=== PATIENT | male | born 1935 | race Caucasian/White ===

== ENCOUNTER 2019-01-28 13:42 | Emergency (ER) | payer MEDICARE, BC ==
[2019-01-28 15:14] LABS: #Eosinphils 0.1 thou/uL (0.0-0.7); #Lymphocytes 1.6 thou/uL (1.20-3.40); #Monocytes 0.4 thou/uL (0.11-0.59); #Neutrophils 4.2 thou/uL (1.40-6.50); %Basophils 0.6 % (0.0-1.0); %Lymphocytes 25.1 % (21.0-51.0); %Monocytes 6.4 % (0.0-10.0); %Neutrophils 66.9 % (42.0-75.0); Hemoglobin 14.3 g/dL (14.0-18.0); Mean Corpuscular HGB CONC 34.5 g/dL (32.0-36.0); Mean Corpuscular Hemoglobin 31.8 pg (27.0-31.0); Mean Corpuscular Volume 92.4 fL (78.0-98.0); Mean Platelet Volume 8.2 fL (7.4-10.4); Platelet Count 166 thou/uL (130-400); RBC Distribution Width 11.9 % (11.5-14.5); Red Blood Cell (RBC) Count 4.48 mill/uL (4.70-6.10); White Blood Cell (WBC) Count 6.3 thou/uL (4.8-10.8)
--- NOTE | 2019-01-28 15:33 | RAD ---
PORTABLE CHEST ONE VIEW: 01/28/2019 3:13 P.M. HISTORY: Hypertension. Dizziness. COMPARISON: 10/11/2017 FINDINGS: The heart size is normal. The left upper lobe lung nodule is stable. The lungs are well expanded wi thout focal areas of consolidation, pneumothoraces, or pleural effusions. IMPRESSION: 1. No evidence of acute process. 2. Stable left upper lobe lung nodule. POS: [facility]
[2019-01-28 15:34] LABS: ALT (SGPT) 26 U/L (8-55); AST (SGOT) 24 U/L (5-34); Albumin 4.2 g/dL (3.4-4.8); Alkaline Phosphatase 72 U/L (40-150); Anion Gap 14 mmol/L (10-20); BUN (Urea Nitrogen) 19 mg/dL (8.4-25.7); Bilirubin, Total 0.9 mg/dL (0.2-1.2); Calc. Creatinine Clearance 0 mL/min (70-130); Calcium 9.2 mg/dL (7.8-10.44); Carbon Dioxide 25 mmol/L (23-31); Chloride 104 mmol/L (98-107); Estimated GFR-MDRD 41; Globulin 2.2 g/dL (2.4-3.5); Glucose 96 mg/dL (83-110); Potassium 4.2 mmol/L (3.5-5.1); Protein, Total 6.4 g/dL (5.8-8.1); Sodium 139 mmol/L (136-145)
--- NOTE | 2019-02-01 11:28 | EKG ---
Test Reason : Blood Pressure : / mmHG Vent. Rate : 067 BPM Atrial Rate : 067 BPM P-R Int : 158 ms QRS Dur : 076 ms QT Int : 400 ms P-R-T Axes : 002 005 055 degrees QTc Int : 422 ms Sinus rhythm with marked sinus arrhythmia Nonspecific ST abnormality Abnormal ECG Confirmed by RODY SCHAFER DO ([id number]), news copy editor TE MAC ([id number]) on 02/01/2019 11:28:00 AM Referred By: Confirmed By:RODY SCHAFER DO
== END 2019-01-28 17:05 | disposition home or self-care (01) ==
LOC: ERS 13:42
DX: R00.1 Bradycardia, unspecified (principal); E78.5 Hyperlipidemia, unspecified; J45.909 Unspecified asthma, uncomplicated; I10 Essential (primary) hypertension; Z87.891 Personal history of nicotine dependence; Z79.82 Long term (current) use of aspirin; Z79.899 Other long term (current) drug therapy
CPT/HCPCS: 36415; 71045; 80053; 83880; 84484; 85025; 93005; 94760

== ENCOUNTER 2020-02-10 07:10 | Day surgery (SDC) | payer MEDICARE, BC ==
[2020-02-07 19:52] LABS: SARS-CoV-2 MS2 Positive; SARS-CoV-2 N Gene Negative; SARS-CoV-2 S Gene Negative; SARS-CoV-2 orf1ab Negative
[2020-02-10] MEDS ORDERED: Cyclopentolate 1% Opth Drop 2 ML BOT ONE (07:32)
[2020-02-10] MEDS ORDERED: Phenylephrine 2.5% Ophth Soln 5 ML BOT ONE (07:32)
[2020-02-10] MEDS ORDERED: EPINEPHrine 0.3 MG in Ophthalmic Irrigation Solution 500 ML IRR SCH (07:34)
[2020-02-10] MEDS ORDERED: Fentanyl 100 MCG/2 ML VIAL ONE (09:03)
[2020-02-10] MEDS ORDERED: Midazolam HCl 2 mg/2 ml Vial ONE (09:03)
[2020-02-10] MEDS ORDERED: Triamcinolone 40 MG/ML VIAL ONE (09:40)
[2020-02-10] MEDS ORDERED: Tobramycin/Dexamethasone Ophth Oint 3.5 GM TUBE ONE (09:40)
[2020-02-10] MEDS ORDERED: Lidocaine 1% PF 5 ML VIAL ONE (09:40)
[2020-02-10] MEDS ORDERED: CEFAZOLIN 1 GM VIAL ONE (09:40)
[2020-02-10] MEDS ORDERED: Lidocaine 4% PF 5 ML AMP ONE (09:40)
[2020-02-10] MEDS ORDERED: Bupivacaine PF 0.75% SDV 10 ML ONE (09:40)
[2020-02-10] MEDS ORDERED: Indocyanine Green 25 MG/10 ML VIAL ONE (09:40)
[2020-02-10] MEDS ORDERED: PROPOFOL 200 MG/20 ML VIAL ONE (09:40)
--- NOTE | 2020-02-10 15:12 | OP ---
DATE OF PROCEDURE: 02/10/2020 PRINCIPAL PREOPERATIVE DIAGNOSIS: Epiretinal membrane, right eye. POSTOPERATIVE DIAGNOSIS: Epiretinal membrane, right eye. PROCEDURES PERFORMED: 1. 25-gauge pars plana vitrectomy, right eye. 2. Epiretinal membrane/internal limiting membrane removal, right eye. ESTIMATED BLOOD LOSS: None. SPECIMENS REMOVED: None. COMPLICATIONS: None. ANESTHESIA: MAC with sub-Tenon's block. DESCRIPTION OF PROCEDURE: The patient was identified in the preoperative holding area. The correct eye being the right eye was marked for surgery. The patient was taken to the operating room, where MAC anesthesia was induced. The right eye was prepped and draped in the usual sterile ophthalmic fashion for surgery. A wire-clip lid speculum was placed. An inferonasal conjunctival peritomy was fashioned with Jing scissors for administration of sub-Tenon's block. The block consisted of 1:1 ratio of 4% lidocaine and 0.75% Marcaine. A total of 5 mL was administered. A standard 25-gauge pars plana vitrectomy platform was fashioned with trocars placed approximately 3.5 mm from the limbus. The infusion was noted to be within the vitreous cavity prior to being turned on to an infusion pressure of 30 mmHg. The light pipe microvitrector was introduced in the eye under visualization of the BIOM viewing system. A careful core vitrectomy was performed followed by injection of Kenalog. Subsequently, a gentle posterior vitreous detachment was created followed by completion of peripheral shave vitrectomy. Following vitrectomy, ICG dye was used to stain the internal limiting membrane. Using the Santos ILM forceps, the internal limiting membrane/epiretinal membrane complex was removed in a circumferential fashion about the fovea. The peel extended approximately 2 disk diameters in radius circumferentially. Following peeling, the microvitrector was reintroduced in the eye and removed any residual vitreous debris. A 360-degree scleral depressed exam of the periphery revealed no defects. The cannulas were sequentially removed and all sclerotomies were noted to be watertight. The subconjunctival Kenalog and Ancef were injected. The wire-clip lid speculum was removed followed by application of TobraDex ophthalmic ointment and a light patch and shield. The patient tolerated the procedure well and was taken to outpatient recovery area in good condition. Job ID: [id number]
== END 2020-02-10 11:00 | disposition home or self-care (01) ==
LOC: SDC 07:10
PROVIDERS: ATTEND Ophthalmology Retina Specialist
PROC: 08T43ZZ Resection of Right Vitreous, Percutaneous Approach (ICD-10-PCS; principal; 2020-02-10)
PROC: 08NE3ZZ Release Right Retina, Percutaneous Approach (ICD-10-PCS; 2020-02-10)
DX: H35.371 Puckering of macula, right eye (principal); E89.0 Postprocedural hypothyroidism; Z95.5 Presence of coronary angioplasty implant and graft
CPT/HCPCS: 67042; U0003; 87635; J0171; J0690; J2001; J2250; J2704; J3010; J3301; J3490